=== PATIENT | male | born 1995 | race Caucasian/White ===

== ENCOUNTER 2022-02-20 20:28 | Emergency (ER) | payer BC, SELFPAY ==
[2022-02-20 20:36] VITALS: BP 114/68; PULSE 86; RESP 18; TEMP 37.1; O2SAT 99; BMI 22.2
--- NOTE | 2022-02-20 21:40 | ED.ABDPAIN ---
HPI - Abdominal Pain General Chief Complaint: Abdominal Pain Stated Complaint: GERD/Crohn's flare up; vomiting Time Seen by Provider: 02/20/22 21:08 History of Present Illness HPI narrative: This 26-year-old male comes in with persistent nausea and vomiting that began yesterday. He has a history of GERD and Crohn's. He did see a director of global marketing last year and had endoscopy and colonoscopy to establish these diagnoses. He states that he ran out of his pepcid and Prilosec last week. He states that he does use marijuana but not too frequently. He does not report any fevers. Related Data Home Medications Medication Instructions Recorded Confirmed omeprazole 20 mg capsule,delayed 20 mg PO QDAY 02/07/22 02/20/22 release oxycodone 5 mg tablet 5 mg PO BID PRN 02/07/22 famotidine 10 mg tablet (Acid 10 mg PO DAILY 02/20/22 02/20/22 Controller) Previous Rx's Medication Instructions Recorded dextroamphetamine-amphetamine ER 30 mg PO QAM #30 caps 02/07/22 30 mg 24hr capsule,extend release (Adderall XR) dextroamphetamine-amphetamine ER 30 mg PO QAM #30 caps 02/07/22 30 mg 24hr capsule,extend release (Adderall XR) dextroamphetamine-amphetamine ER 30 mg PO QDAY #30 caps 02/07/22 30 mg 24hr capsule,extend release (Adderall XR) methylprednisolone 4 mg tablets in See Rx Instructions PO .COMPLEX 02/20/22 a dose pack (Medrol (Rodney)) #21 ea metoclopramide HCl 10 mg tablet 10 mg PO Q6H PRN nausea and 02/20/22 (Reglan) vomiting #20 tabs Allergies Allergy/AdvReac Type Severity Reaction Status Date / Time acetaminophen Allergy Mild Unknown Verified 02/20/22 20:42 amoxicillin Allergy Mild Unknown Verified 02/20/22 20:42 cefaclor Allergy Mild Unknown Verified 02/20/22 20:42 cefuroxime Allergy Mild Unknown Verified 02/07/22 11:43 Penicillins Allergy Verified 02/20/22 20:42 Review of Systems Status of ROS Reports: 10 or more systems reviewed and unremarkable except as noted in History and below Narrative Constitutional: No fevers, no weight gain or loss. Eyes: No discharge. No vision changes. HENT: No congestion, no sore throat, no ear pain. Cardiovascular: No chest pain, no palpitations. Respiratory: No shortness of breath, no wheezes, no cough. Gastrointestinal: Abdominal pain, nausea, and vomiting. Genitourinary: No dysuria, no hematuria. Musculoskeletal: Normal range of motion. Skin: No rashes, no pruritis. Neurological: No dizziness, weakness, sensory change, speech change. Endo/Heme/Allergies: No bruising or bleeding. No polydipsia. Pysch: no suicidality, no anxiety, no insomnia. All other systems reviewed and are negative. [facility] Medical History (Updated 02/20/22 @ 23:28 by Elie Hemphill MD) ADHD, predominantly inattentive type Social History Smoking Status: Current every day smoker How often do you have a drink containing alcohol: monthly or less AUDIT-C Alcohol total score: 1 Non-prescribed substance use: marijuana (any form) Exam Narrative: Exam Narrative: Constitutional: Well-developed, well-nourished, no acute distress. HEENT: Normocephalic, atraumatic. Neck: Normal range of motion. Nontender. Supple. Heart: Regular. No murmurs. Normal rate. Intact distal pulses. Lungs: Clear to auscultation. No chest discomfort. No wheezes, rhonchi, or rales. Abdomen: Normal bowel sounds. Diffuse tenderness. No rebound tenderness. Genitalia: Deferred. Back: No midline tenderness. Normal range of motion. Extremities: Normal range of motion. No injury. Skin: Intact. No rash. Warm. No erythema or pallor. Neurologic: No altered sensation. No weakness. Alert and oriented. Psychiatric: No suicidality. No anxiety or depression. No insomnia. Nursing notes and vitals signs are reviewed. Const: Vital Signs, click to edit/add: Vital Signs - 24 hr 02/20/22 20:36 Temperature 98.8 F Pulse Rate [Left P ulse Oximeter] 86 Respiratory Rate 18 Blood Pressure [Ri ght Upper Arm] 114/68 Pulse Oximetry 99 Oxygen Delivery Me thod Room Air Course Vital Signs Vital signs: Initial Vital Signs Temperature 98.8 F 02/20/22 20:36 Temperature Source Temporal Artery Scan 02/20/22 20:36 Pulse Rate 86 02/20/22 20:36 Respiratory Rate 18 02/20/22 20:36 Blood Pressure 114/68 02/20/22 20:36 Blood Pressure Mean 83 02/20/22 20:36 Blood Pressure Position Sitting 02/20/22 20:36 Pulse Oximetry 99 02/20/22 20:36 Oxygen Delivery Method 02/20/22 20:36 Vital Signs Temperature 98.8 F 02/20/22 20:36 Pulse Rate 86 02/20/22 20:36 Respiratory Rate 18 02/20/22 20:36 Blood Pressure 114/68 02/20/22 20:36 Pulse Oximetry 99 02/20/22 20:36 Oxygen Delivery Method 02/20/22 20:36 Temperature 98.8 F 02/20/22 20:36 Pulse Rate 86 02/20/22 20:36 Respiratory Rate 18 02/20/22 20:36 Blood Pressure 114/68 02/20/22 20:36 Pulse Oximetry 99 02/20/22 20:36 Oxygen Delivery Method 02/20/22 20:36 MDM - Abdominal Pain MDM Narrative Medical decision making narrative: This patient comes in reporting abdominal pain with nausea and vomiting. He has a history of GERD and Crohn's which was diagnosed by a director of global marketing about a year ago. He is not taking any medicines for Crohn's but has run out of his Prilosec and Pepcid medications about a week ago. He has normal bowel sounds and has diffuse tenderness throughout his abdomen. There is no obvious rebound tenderness. An IV was established where he received 2 L of normal saline, Zofran 4 mg, Dilaudid 0.5 mg, and Solu-Medrol 125 mg. Lab results returned with reassuring findings. I did discuss CT imaging options and in a process of shared decision-making he declined this study for now. The patient is improved significantly with the above listed medications. He did have some lingering nausea so he received 10 mg of Reglan intravenously. He states that he has had Reglan in the past in this seemed to help him when needed. He is okay to be discharged home. He received prescriptions for Medrol Dosepak and Reglan. Lab Data Labs: Lab Results 02/20/22 02/20/22 Range/Units 21:55 21:55 WBC 11.47 H (4.50-11.00) K/uL RBC 5.09 (4.30-5.90) m/uL Hgb 15.3 (13.5-17.5) gm/dL Hct 44.5 (37.0-53.0) % MCV 87 (80-100) fL MCH 30 (26-34) pg MCHC 34 (32-36) gm/dL RDW Coeff of Cody 12.3 (11.5-15.5) % Plt Count 305 (140-440) K/uL Neut % (Auto) 52.1 (42.0-72.0) % Lymph % (Auto) 35.2 (20-44) % [place] % (Auto) 6.5 (0.0-11.0) % Eos % (Auto) 5.9 (0.0-7.0) % Baso % (Auto) 0.2 (0.0-3.0) % Neut # (Auto) 6.00 (1.7-7.0) K/uL Lymph # (Auto) 4.00 H (0.90-2.90) K/uL [place] # (Auto) 0.70 (0.00-0.90) K/UL Eos # (Auto) 0.70 H (0.00-0.50) K/uL Baso # (Auto) 0.00 (0.00-0.30) K/uL Abs Immat Gran (auto) 0.01 (0.00-0.30) K/uL Sodium 141 (135-149) mmol/L Potassium 3.8 (3.6-5.1) mmol/L Chloride 103 (96-114) mmol/L Carbon Dioxide 29 (20-32) mmol/L BUN 17 (5-24) mg/dL Creatinine 0.7 (0.5-1.5) mg/dL Estimated Creat Clear 159.03 Estimated GFR 130 ml/min Glucose 102 (60-115) mg/dL Calcium 9.2 (8.4-10.6) mg/dL Discharge Plan Discharge Clinical Impression: Crohn's disease, Vomiting Patient Disposition: Home, Self-Care Condition: Improved Additional Instructions: Take medication as prescribed and needed. Follow up with MD or return if worsening. Prescriptions: New methylprednisolone [Medrol (Rodney)] 4 mg tablets,dose pack See Rx Instructions .ROUTE .COMPLEX Qty: 21 0RF Rx Instructions: orally per package directions metoclopramide HCl [Reglan] 10 mg tablet 10 mg PO Q6H PRN (Reason: nausea and vomiting) Qty: 20 0RF No Action famotidine [Acid Controller] 10 mg tablet 10 mg PO DAILY oxycodone 5 mg tablet 5 mg PO BID PRN omeprazole 20 mg capsule,delayed release(DR/EC) 20 mg PO QDAY dextroamphetamine-amphetamine [Adderall XR] 30 mg capsule,extended release 24hr 30 mg PO QDAY Qty: 30 0RF dextroamphetamine-amphetamine [Adderall XR] 30 mg capsule,extended release 24hr 30 mg PO QAM Qty: 30 0RF dextroamphetamine-amphetamine [Adderall XR] 30 mg capsule,extended release 24hr 30 mg PO QAM Qty: 30 0RF Stand Alone Forms: MyHealth Info Instructions
[2022-02-20] MEDS: 0.9 % SODIUM CHLORIDE 1000 ml 1,000 ML IV (21:56)
[2022-02-20] MEDS: METHYLPREDNISOLONE SOD SUCC 62.5 MG/ML (125) 125 MG IVP (21:57)
[2022-02-20] MEDS: HYDROmorphone 0.5 mg/0.5 ml inj IVP (21:57)
[2022-02-20] MEDS: ONDANSETRON 2 MG/ML inj 4 MG IVP (21:57)
[2022-02-20] MEDS: PANTOPRAZOLE SODIUM 40 MG INJ IVP (21:57)
[2022-02-20 22:20] LABS: Basophils Percent Auto 0.2 % (0.0-3.0); Eosinophils Percent Auto 5.9 % (0.0-7.0); Hematocrit 44.5 % (37.0-53.0); Hemoglobin* 15.3 gm/dL (13.5-17.5); Immature Granulocytes Abs Auto 0.01 K/uL (0.00-0.30); Lymphocytes Percent Auto 35.2 % (20-44); Mean Corpuscular HGB Conc 34 gm/dL (32-36); Mean Corpuscular Hemoglobin 30 pg (26-34); Mean Corpuscular Volume 87 fL (80-100); Monocytes Percent Auto 6.5 % (0.0-11.0); Neutrophils Percent Auto 52.1 % (42.0-72.0); Platelet Count* 305 K/uL (140-440); RDW Coefficient of Variation % 12.3 % (11.5-15.5); Red Blood Count 5.09 m/uL (4.30-5.90); White Blood Count* 11.47 K/uL (4.50-11.00)
[2022-02-20 22:23] LABS: Slide Review Reflex No
[2022-02-20 22:32] LABS: Chloride* 103 mmol/L (96-114); Potassium* 3.8 mmol/L (3.6-5.1); Sodium* 141 mmol/L (135-149)
[2022-02-20 22:34] LABS: Creatinine* 0.7 mg/dL (0.5-1.5); Est. Creatinine Clearance* 159.03; Estimated Glomerular Filt Rate 130 ml/min
[2022-02-20 22:35] LABS: Blood Urea Nitrogen* 17 mg/dL (5-24); Calcium* 9.2 mg/dL (8.4-10.6); Carbon Dioxide* 29 mmol/L (20-32); Glucose* 102 mg/dL (60-115)
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
[2022-02-20] MEDS: METOCLOPRAMIDE HCL 5 MG/ML INJ 10 MG IV (23:06)
[2022-02-20 23:39] VITALS: BP 108/56; PULSE 73; RESP 16; O2SAT 98
--- NOTE | 2022-02-23 08:50 | ED.NURSE ---
pt called and wants a work note that has been off since 02/20/22 due to illness. scanned and patient was going to get from the portal.
== END 2022-02-20 23:56 | disposition home or self-care (01) ==
PROVIDERS: Emergency Provider Emergency Medicine Emergency Medical Services
DX: K50.90 Crohn's disease, unspecified, without complications (principal); R11.10 Vomiting, unspecified
CPT/HCPCS: 36415; 80048; 85025; 96374; 96375; 99284; 99285; C9113; J1170; J2405; J2765; J2930; J7030

== ENCOUNTER 2022-08-03 00:15 | Emergency (ER) | payer BC, SELFPAY ==
[2022-08-03] VITALS (8 sets, daily range): BP systolic 106–126; BP diastolic 47–72; PULSE 62–77; RESP 16–18; TEMP 36.1; O2SAT 97–98
--- NOTE | 2022-08-03 00:45 | ED_ITS ---
HPI - General Adult General Chief complaint: Headache/Migraine Stated complaint: Migrane Time Seen by Provider: 08/03/22 00:26 Source: patient Mode of arrival: ambulatory Limitations: no limitations History of Present Illness HPI narrative: 27-year-old male presents to the emergency department with a migraine for the past 3 days. Does have a history of migraine disorder since the age of 13. Reports that this is classic and typical of his migraine. He reports that he tends to get them about once a month. He has had no head injury or trauma. He reports that these types of headaches do run in his family any tends to get them more often at the start of the spring. Headache is accompanied by nausea, photosensitivity, slight pins and needles feeling in his body. He has been using Tylenol and ibuprofen at home with no improvement in his symptoms. He also has Reglan that he can take for nausea and vomiting and tried this about 1 hour prior to presentation here in the ED. He reports that he was evaluated in the [facility] this afternoon. He was discharged around 4:00 p.m. which is about 6 hours prior to arrival. He reports that he was treated with IV fluid, he did have blood work. CT scan of the head was not performed nor indicated. He states that he was given Benadryl, Compazine and Toradol. His symptoms were not completely relieved. He reports that his headache is persistent though not really worse. He was going to go back to the [place] [facility] ED but was told that there is about a 6 hour wait and elected to come to [place] instead. Headache is bilateral, originally started in the parietal area which is typical for him. No neurological weakness. No head injury or trauma. No history of seizure. He denies alcohol intoxication but does admit to marijuana use earlier today. 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 ROS is notable for the headache, photophobia, nausea as stated above, otherwise denies times 12 systems including fever or other localizing symptoms of illness. Past medical history notable for Crohn's disease, does not require ongoing treatment just symptomatic. No prior surgeries. No daily medications but does have Reglan as needed for nausea and vomiting. He also has a history of migraines as stated. Does report regular marijuana use, no other illicit drugs. No pertinent travel. Family history is notable for migraines that are similar in other members of the family. Related Data Home Medications Medication Instructions Recorded Confirmed omeprazole 20 mg capsule,delayed 20 mg PO QDAY 02/07/22 05/12/22 release famotidine 10 mg tablet (Acid 10 mg PO DAILY 02/20/22 05/12/22 Controller) Previous Rx's Medication Instructions Recorded dextroamphetamine-amphetamine ER 30 mg PO QAM #30 caps 05/12/22 30 mg 24hr capsule,extend release (Adderall XR) dextroamphetamine-amphetamine ER 30 mg PO QAM #30 caps 05/12/22 30 mg 24hr capsule,extend release (Adderall XR) dextroamphetamine-amphetamine ER 30 mg PO QDAY #30 caps 05/12/22 30 mg 24hr capsule,extend release (Adderall XR) metoclopramide HCl 10 mg tablet 10 mg PO Q6H PRN nausea and 05/12/22 (Reglan) vomiting #30 tabs Allergies Allergy/AdvReac Type Severity Reaction Status Date / Time acetaminophen Allergy Unknown Unknown Verified 05/12/22 08:20 amoxicillin Allergy Unknown Unknown Verified 05/12/22 08:20 cefaclor Allergy Unknown Unknown Verified 05/12/22 08:20 cefuroxime Allergy Unknown Unknown Verified 05/12/22 08:20 Penicillins Allergy Verified 05/12/22 08:20 [facility] PFS Medical History ADHD, predominantly inattentive type Colitis Exercise-induced asthma (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/06) Generalized anxiety disorder Nausea and vomiting (04/14/19) Severe episode of recurrent major depressive disorder (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/09) Family History Mother Bipolar disorder Social History Narrative: single, 1 daughter Smoking Status: Current every day smoker Do you use any of these nicotine containing products: None Second hand tobacco smoke exposure: Yes How often do you have a drink containing alcohol: monthly or less AUDIT-C Alcohol total score: 1 Non-prescribed substance use: marijuana (any form) Non-prescribed substance use details: smoking Little interest or pleasure in doing things: not at all Feeling down, depressed, or hopeless: not at all Exam Const: Vital Signs, click to edit/add: Vital Signs - 24 hr 08/03/22 00:21 08/03/22 01:15 08/03/22 01:23 Temperature 97.0 F L Pulse Rate 62 Pulse Rate [Left P ulse Oximeter] 77 63 Respiratory Rate 16 18 Blood Pressure Blood Pressure [Ri ght Upper Arm] 126/72 110/47 L Pulse Oximetry 98 97 98 Oxygen Delivery Me thod Room Air Room Air 08/03/22 01:24 Temperature Pulse Rate 65 Pulse Rate [Left P ulse Oximeter] Respiratory Rate Blood Pressure 111/64 Blood Pressure [Ri ght Upper Arm] Pulse Oximetry 98 Oxygen Delivery Me thod Documenting provider has reviewed patient's vital signs: yes Common normals: no apparent distress and alert General appearance: cooperative Orientation/consciousness: Yes awake Other: Appears uncomfortable but not impaired. HENMT: Common normals: normocephalic, head/scalp atraumatic and TM's normal bilaterally Head and scalp: normocephalic and atraumatic Face and sinus: normal facial exam Tympanic membrane: TM's normal bilaterally Mouth: oral and palatal mucosa normal Throat: posterior oropharynx normal Eye: Common normals: PERRL, EOMs intact bilaterally and conjunctivae normal Conjunctiva: conjunctiva(e) normal Pupil: PERRL Neck & C-Spine: Common normals: full ROM, no lymphadenopathy and no meningeal signs Cervical spine: cervical ROM normal Resp: Common normals: normal respiratory effort and no use of accessory muscles Effort & inspection: able to speak in complete sentences Cardio: Common normals: regular rate, regular rhythm, S1 normal heart sound, S2 normal heart sound, no murmurs and peripheral pulses 2+ throughout Rate: regular rate Rhythm: regular rhythm Heart sounds: S1 normal and S2 normal Peripheral pulses: pulses 2+ throughout Extremity: Common normals: normal to inspection and normal capillary refill Neuro: Common normals: CN's II-XII intact bilaterally Sensorium/orientation: awake and alert Meningeal signs: no meningeal signs Speech: speech normal Gait (neuro): normal gait Motor exam: strength 5/5 throughout, no tremor noted and no movement abnormalities noted Psych: Common normals: mental status grossly normal and speech normal Attitude: calm Activity/motor behavior: appropriate eye contact Speech: normal speech Insight: insight good Judgement: judgment good Skin: Common normals: no rashes or lesions noted General skin exam: no rashes or lesions noted Course Vital Signs Vital signs: Initial Vital Signs Temperature 97.0 F L 08/03/22 00:21 Temperature Source Temporal Artery Scan 08/03/22 00:21 Pulse Rate 77 08/03/22 00:21 Pulse Rhythm 08/03/22 00:21 Respiratory Rate 16 08/03/22 00:21 Blood Pressure 126/72 08/03/22 00:21 Blood Pressure Mean 90 08/03/22 00:21 Pulse Oximetry 98 08/03/22 00:21 Oxygen Delivery Method 08/03/22 00:21 Vital Signs Temperature 97.0 F L 08/03/22 00:21 Pulse Rate 77 08/03/22 00:21 Respiratory Rate 16 08/03/22 00:21 Blood Pressure 126/72 08/03/22 00:21 Pulse Oximetry 98 08/03/22 00:21 Oxygen Delivery Method 08/03/22 00:21 Temperature 97.0 F L 08/03/22 00:21 Pulse Rate 65 08/03/22 01:24 Respiratory Rate 18 08/03/22 01:15 Blood Pressure 111/64 08/03/22 01:24 Pulse Oximetry 98 08/03/22 01:24 Oxygen Delivery Method 08/03/22 01:15 Medical Decision Making MDM Narrative Medical decision making narrative: No trauma, exam reassuring. Do not recommend head CT. Repeating blood work that has been done less than 12 hours ago is not likely to be helpful. Recommend normal saline, Benadryl, Toradol, Zofran and a dose of dexamethasone. Reassess in a couple of hours. Update: Patient reporting partial improvement. Nausea has improved markedly. Discussed that the dexamethasone sumatriptan may take more time to kick in, he is understanding of this. He agrees to discharge, declines a work note. Alarm symptoms reviewed. Seek reassessment in 24 hours if not improving. Tylenol, ibuprofen and continued use of his Reglan discussed. Discharge Plan Discharge Clinical Impression: Migraine Patient Disposition: Home w/ Parent or Adult Condition: Stable Instructions: Migraine Headache (ED) Additional Instructions: As we discussed, it will take a few hours to see the full effect of the steroids you were given. unfortunately, sometimes the migraines do not improve with medications. When you get home, take 1000 mg of oral Tylenol and rest. Continue to drink plenty of fluids. Avoid marijuana, alcohol. It is okay to use caffeine in the morning. Continue pushing fluids. If your headache is not improving in 24 hours, you may seek repeat assessment. Continue ibuprofen, next dose eligible at 7:00 a.m.. Your given IV fluid, Benadryl, Toradol, Zofran for nausea and a dose of dexamethasone. You were also given a dose of sumatriptan. Migraines tend to last few days. If there are neurological changes, seizure, fever or severe worsening, seek repeat assessment. Activity Level: Activity as Tolerated Discharge Diet: Regular Prescriptions: No Action metoclopramide HCl [Reglan] 10 mg tablet 10 mg PO Q6H PRN (Reason: nausea and vomiting) Qty: 30 1RF dextroamphetamine-amphetamine [Adderall XR] 30 mg capsule,extended release 24hr 30 mg PO QDAY Qty: 30 0RF dextroamphetamine-amphetamine [Adderall XR] 30 mg capsule,extended release 24hr 30 mg PO QAM Qty: 30 0RF dextroamphetamine-amphetamine [Adderall XR] 30 mg capsule,extended release 24hr 30 mg PO QAM Qty: 30 0RF famotidine [Acid Controller] 10 mg tablet 10 mg PO DAILY omeprazole 20 mg capsule,delayed release(DR/EC) 20 mg PO QDAY Follow Up/Referrals: Jon Luna MD [Primary Care Provider] - Stand Alone Forms: [employer] Info Instructions
[2022-08-03] MEDS: ONDANSETRON 2 MG/ML inj 4 MG IVP (01:01)
[2022-08-03] MEDS: diphenhydrAMINE 25 MG in 0.9 % SODIUM CHLORIDE 100 ml 100 ML 402 MG IVPB (01:01)
[2022-08-03] MEDS: dexAMETHasone 10 MG in 0.9 % SODIUM CHLORIDE 100 ml 100 ML 404 MG IVPB (01:02)
[2022-08-03] MEDS: KETOROLAC 15 MG/ML inj IVP (01:02)
[2022-08-03] MEDS: 0.9 % SODIUM CHLORIDE 500 ML 500 ML 1000 ML IV (01:02)
[2022-08-03] MEDS: SUMAtriptan succinate 50 MG TABLET PO (01:54)
== END 2022-08-03 02:11 | disposition home or self-care (01) ==
PROVIDERS: Emergency Provider Family Medicine; PCP Family Medicine
DX: G43.909 Migraine, unspecified, not intractable, without status migrainosus (principal)
CPT/HCPCS: 96365; 96368; 96375; 99283; 99284; A9270; J1100; J1200; J1885; J2405; J7120

== ENCOUNTER 2023-07-30 15:59 | Emergency (ER) | payer MEDICAID, SELFPAY ==
[2023-07-30 16:01] VITALS: BP 119/57; PULSE 89; O2SAT 99
[2023-07-30] MEDS: HYDROmorphone 0.5 mg/0.5 ml inj IVP ×2 (16:07→16:38)
[2023-07-30] MEDS: 0.9 % SODIUM CHLORIDE 500 ML 500 ML IV (16:07)
[2023-07-30 16:08] VITALS: BP 111/67; PULSE 86; RESP 20; O2SAT 100; BMI 20.1
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
[2023-07-30] MEDS: ONDANSETRON 2 MG/ML inj 4 MG IVP ×2 (16:10→16:38)
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
[2023-07-30 16:19] LABS: Basophils Percent Auto 0.2 % (0.0-3.0); Eosinophils Percent Auto 3.3 % (0.0-7.0); Hematocrit 43.6 % (37.0-53.0); Immature Granulocytes Pct Auto 1.1 %; Lymphocytes Percent Auto 41.9 % (20-44); Mean Corpuscular HGB Conc 34 gm/dL (32-36); Mean Corpuscular Hemoglobin 29 pg (26-34); Mean Corpuscular Volume 86 fL (80-100); Monocytes Percent Auto 6.8 % (0.0-11.0); Neutrophils Percent Auto 46.7 % (42.0-72.0); Platelet Count* 333 K/uL (140-440); RDW Coefficient of Variation % 12.4 % (11.5-15.5); White Blood Count* 12.23 K/uL (4.50-11.00)
[2023-07-30 16:29] LABS: Chloride* 104 mmol/L (96-114); Potassium* 3.4 mmol/L (3.6-5.1); Sodium* 137 mmol/L (135-149)
[2023-07-30 16:31] VITALS: BP 123/72
[2023-07-30 16:32] LABS: Anion Gap 12 mEq/L (7-15); Blood Urea Nitrogen* 14 mg/dL (5-24); Carbon Dioxide* 21 mmol/L (20-32); Creatinine* 0.9 mg/dL (0.5-1.5); Est. Creatinine Clearance* 109.76; Estimated Glomerular Filt Rate 119 ml/min
[2023-07-30 16:33] LABS: Calcium* 9.8 mg/dL (8.4-10.6); Ethanol* 0.01 % (0.01-0.03); Glucose* 104 mg/dL (60-115)
[2023-07-30 16:40] LABS: Slide Review Reflex No
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
== END 2023-07-30 16:50 | disposition other institution (70) ==
PROVIDERS: Emergency Provider Emergency Medicine Emergency Medical Services; PCP Family Medicine
DX: S12.201A Unspecified nondisplaced fracture of third cervical vertebra, initial encounter for closed fracture (principal); V19.3XXA Pedal cyclist (driver) (passenger) injured in unspecified nontraffic accident, initial encounter; S36.039A Unspecified laceration of spleen, initial encounter
CPT/HCPCS: 36415; 70450; 71260; 72125; 74177; 80048; 80306; 81001; 82077; 85025; 94761; 96374; 96375; 96376; 99284; 99285; 99291; J1170; J2405; J7030; Q9967

== ENCOUNTER 2023-07-30 16:33 | Outpatient (CLI) | payer MEDICAID, SELFPAY | END 2023-07-30 16:34 | disposition home or self-care (01) | PROVIDERS: PCP Family Medicine; Visit Provider Family Medicine | DX: S12.200S Unspecified displaced fracture of third cervical vertebra, sequela (principal); S36.039S Unspecified laceration of spleen, sequela | CPT/HCPCS: A0425; A0433 ==

== ENCOUNTER 2023-08-07 20:14 | Emergency (ER) | payer MEDICAID, SELFPAY ==
[2023-08-07 20:26] VITALS: BP 126/67; PULSE 114; RESP 18; TEMP 37.4; O2SAT 99; BMI 21.5
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
--- NOTE | 2023-08-07 21:37 | XR_ITS ---
Patient: LOLLY SOLIS Facility:?[facility] Patient ID:?[id number] Site Patient ID:?[id number]. Site :?[id number] Study:?XRay-Chest portable-08/07/2023 9:48:10 PM Ordering Physician:Silviano Sanz Final Report: INDICATION: Cough, fever. TECHNIQUE: Chest 1 view. COMPARISON: CT chest, abdomen, and pelvis 07/30/2023. FINDINGS: Cardiovascular and mediastinum: Heart size and vasculature are normal in caliber and appearance. Lungs and pleural spaces: Lungs are clear. No sign of infiltrate or mass. No sign of pleural effusion. No pneumothorax. Bones and soft tissues: Distended gastric bubble with air. Dense descending colon, suspect filled with oral contrast from previous imaging exam. No acute findings. IMPRESSION: No evidence of an acute pulmonary process. Dictated by John Pathak MD @ 08/07/2023 10:23:37 PM Signed by:?John Pathak MD @08/07/2023 10:23:37 PM (Electronic Signature)
[2023-08-07 22:08] LABS: Lactate* 0.5 mmol/L (0.5-1.9)
[2023-08-07] MEDS: ONDANSETRON 2 MG/ML inj 4 MG IVP (22:10)
[2023-08-07] MEDS: MORPHINE 4 MG/ML INJ IVP (22:10)
[2023-08-07 22:25] LABS: Albumin* 3.8 g/dL (3.3-5.0); Chloride* 100 mmol/L (96-114); Sodium* 137 mmol/L (135-149)
[2023-08-07 22:26] LABS: Potassium* 3.9 mmol/L (3.6-5.1)
[2023-08-07 22:28] LABS: Creatinine* 0.6 mg/dL (0.5-1.5); Estimated Glomerular Filt Rate 135 ml/min
[2023-08-07 22:29] LABS: Alanine Aminotransferase* 107 U/L (4-50); Alkaline Phosphatase* 58 U/L (40-150); Anion Gap 4 mEq/L (7-15); Aspartate Amino Transferase* 89 U/L (12-35); Bilirubin Total* 0.4 mg/dL (0.1-1.5); Blood Urea Nitrogen* 13 mg/dL (5-24); Calcium* 9.1 mg/dL (8.4-10.6); Carbon Dioxide* 33 mmol/L (20-32); Glucose* 99 mg/dL (60-115)
[2023-08-07 22:30] LABS: Basophils Percent Auto 0.4 % (0.0-3.0); Eosinophils Percent Auto 6.6 % (0.0-7.0); Hematocrit 29.7 % (37.0-53.0); Hemoglobin* 9.8 gm/dL (13.5-17.5); Lymphocytes Percent Auto 24.5 % (20-44); Mean Corpuscular HGB Conc 33 gm/dL (32-36); Mean Corpuscular Hemoglobin 29 pg (26-34); Mean Corpuscular Volume 89 fL (80-100); Neutrophils Percent Auto 56.5 % (42.0-72.0); Platelet Count* 338 K/uL (140-440); RDW Coefficient of Variation % 12.3 % (11.5-15.5); Red Blood Count 3.34 m/uL (4.30-5.90); White Blood Count* 11.37 K/uL (4.50-11.00)
[2023-08-07 22:32] LABS: C Reactive Protein* 5.8 mg/dL (0.5-1.0)
[2023-08-07 22:45] LABS: Procalcitonin* 0.11 ng/mL (<0.50)
[2023-08-07] MEDS: HYDROmorphone 0.5 mg/0.5 ml inj IVP (22:46)
[2023-08-07 22:52] LABS: Slide Review Reflex No
--- NOTE | 2023-08-07 23:03 | PC.NURSE ---
Assume care of this pt. Pt sitting up in bed without c/o or requests. SO at BS and states they are wating for lab results.
[2023-08-07 23:05] VITALS: O2SAT 99
[2023-08-07 23:07] LABS: PCR FLU A Negative PCR FLU A (Negative); PCR FLU B Negative PCR FLU B (Negative); PCR RSV Negative PCR RSV (Negative); SARS PCR* Negative SARS-CoV-2 (Negative)
[2023-08-07 23:25] VITALS: BP 120/64; PULSE 82; RESP 20; TEMP 37.1; O2SAT 99
--- NOTE | 2023-08-07 23:27 | PC.NURSE ---
Pt pvt tx to [facility] via pvt car. Pt chief c/o is neck pain. Remains in [place] collar in place. Able to tx self to w/c and into car. SO driving. D/C packet accompany pt.
== END 2023-08-07 23:33 | disposition short-term general hospital (02) ==
PROVIDERS: Emergency Provider Family Medicine; PCP Family Medicine
DX: S12.2 Fracture of third cervical vertebra (principal); R50.9 Fever, unspecified; S36.039D Unspecified laceration of spleen, subsequent encounter
CPT/HCPCS: 36415; 71045; 80053; 83605; 84145; 85025; 86140; 87040; 87631; 94761; 96374; 96375; 99284; 99285; J1170; J2270; J2405